=== PATIENT | female | born 1995 | race Caucasian/White ===

== ENCOUNTER 2016-11-28 22:24 | Observation (INO) | payer MEDICAID ==
[~2016-11-28] VITALS: Ht 157.5 cm; Wt 52.2 kg
[2016-11-28 23:23] LABS: Basophils # (auto) 0 uL; Basophils % (auto) 0.3 % (0.0-2.0); Eosinophils # (auto) 0.1 uL; Eosinophils % (auto) 0.6 % (0.0-7.0); Hematocrit 42.1 % (36.0-46.0); Hemoglobin 14.5 g/dL (12.2-16.2); Lymphocytes # (auto) 1.9 uL; Lymphocytes % (auto) 19.7 % (10.0-50.0); Mean Corpuscular Hemoglobin 31.3 pg (28.0-32.0); Mean Corpuscular Hgb Conc. 34.5 g/dL (32.0-36.0); Mean Corpuscular Volume 90.7 fL (80.0-100.0); Monocytes # (auto) 0.6 uL; Monocytes % (auto) 6.5 % (0.0-12.0); Neutrophils # (auto) 6.9 uL; Neutrophils % (auto) 72.9 % (37.0-80.0); Platelet Count (auto) 210 10^3/uL (140-450); Red Cell Distribution Width 12.7 % (11.6-16.0); White Blood Cell 9.4 10^3/uL (4.4-10.8)
[2016-11-28 23:42] LABS: Albumin 4.2 g/dL (3.4-5.0); BUN/Creatinine Ratio 9.9; Calcium 8.1 mg/dL (8.5-10.1); Magnesium 2.1 mg/dL (1.6-2.6)
[2016-11-28 23:44] LABS: Bilirubin, Total 0.3 mg/dL (0.2-1.0); Salicylate < 1.7 mg/dL (2.8-20.0); Total Protein 7.4 g/dL (6.4-8.2)
[2016-11-28 23:45] LABS: Acetaminophen < 2.0 ug/mL (10-30); Potassium 2.8 mmol/L (3.5-5.1)
[2016-11-28 23:54] LABS: Urine RBC None Seen /hpf (0 - 4)
[2016-11-29] MEDS ORDERED: POTASSIUM CHL 20 Meq TABLET PO ONE
[2016-11-29 00:25] LABS: Urine Bilirubin Negative (Negative); Urine Blood Negative /uL (Negative); Urine Color Colorless (Yellow); Urine Glucose Normal (Normal); Urine Ketone Negative (Negative); Urine Nitrite Negative (Negative); Urine Squamous Epithelial Cell FEW /hpf (<5); Urine Urobilinogen Normal (Negative); Urine pH 5.5 (5.0-8.0)
[2016-11-29] MEDS ORDERED: LIDOCAINE 1% HCL (LOCAL ANESTH.) INJ 20ML MDV IJ ONE (01:00)
[2016-11-29] MEDS ORDERED: cefTRIAXone SOD 1,000 MG VL ONE (05:46)
[2016-11-29] MEDS ORDERED: cefTRIAXone SOD 1,000 MG VL IM ONE (06:00)
[2016-11-29] MEDS ORDERED: SERTRALINE HCL 50 MG TAB PO SCH (10:00)
[2016-11-29] MEDS ORDERED: ALPRAZolam 0.5 MG TAB PO SCH (10:00)
[2016-11-29] MEDS ORDERED: ALPRAZolam 0.5 MG TAB PO PRN (10:00)
[2016-11-29 19:10] VITALS: BP 124/75
== END 2016-11-29 20:06 | disposition short-term general hospital (02) | DRG 384 ==
LOC: EDBD 22:24 → ER 22:30 → OVERFLOW 11-29 08:01 → ER 11-29 20:06
PROVIDERS: ADMIT Emergency Medicine; ATTEND Emergency Medicine
DX: S51.812A Laceration without foreign body of left forearm, initial encounter (principal); R45.851 Suicidal ideations; F32.9 Major depressive disorder, single episode, unspecified; W26.0XXA Contact with knife, initial encounter; Y93.89 Activity, other specified; Y92.89 Other specified places as the place of occurrence of the external cause; Y99.8 Other external cause status; F41.9 Anxiety disorder, unspecified
CPT/HCPCS: 36415; 80053; 80320; 80329; 81001; 81025; 83735; 85025; 96372; 99285; G0378; G0434; J0696; J2001; J7050; A4565